=== PATIENT | male | born 1950 | race Caucasian/White ===

== ENCOUNTER 2017-07-14 15:25 | Emergency (ER) | payer OTHER ==
[2017-07-14] MEDS ORDERED: NS 1,000 ML IV ONE (15:42)
--- NOTE | 2017-07-14 15:48 | EDPHY ---
H & P Stated Complaint: intercourse last night. acute posterior headache. right side face tingling Time Seen by Provider: 07/14/17 15:31 HPI/ROS: CHIEF COMPLAINT: Right facial tingling HISTORY OF PRESENT ILLNESS: Patient is a 66-year-old healthy man who comes to the emergency department complaining of tingling in his right lower lip and cheek. No weakness or deficits or slurred speech. The patient had sudden onset of severe posterior right-sided headache last night during intercourse. When he woke up this morning his headache was better but he was doing some yard work this afternoon around 2:00 p.m. When he suddenly noticed some tingling in his right lower lip and cheek. No slurred speech. No headache. He thought that he was dehydrated and overheated. He got a glass of water to but His symptoms did not resolve. They are now improved but he still feels a slight numb sensation. No weakness in his arms or legs. Here during my exam he states that he did feel some tingling in his right toes briefly while lying in the ER bed. He currently does not have a headache. No recent fevers. No trauma. REVIEW OF SYSTEMS: Constitutional: denies: chills, fever, recent illness, recent injury EENTM: denies: blurred vision, double vision, nose congestion Respiratory: denies: cough, shortness of breath Cardiac: denies: chest pain, irregular heart rate, lightheadedness, palpitations Gastrointestinal/Abdominal: denies: abdominal pain, diarrhea, nausea, vomiting, blood streaked stools Genitourinary: denies: dysuria, frequency, hematuria, pain Musculoskeletal: denies: joint pain, muscle pain Skin: denies: lesions, rash, jaundice, bruising Neurological: See HPI denies: dizziness, weakness Hematologic/Lymphatic: denies: blood clots, easy bleeding, easy bruising Immunologic/allergic: denies: HIV/AIDS, transplant EXAM: GENERAL: Well-appearing, well-nourished and in no acute distress. HEAD: Atraumatic, normocephalic. EYES: Pupils equal round and reactive to light, extraocular movements intact, sclera anicteric, conjunctiva are normal. ENT: TMs normal, nares patent, oropharynx clear without exudates. Moist mucous membranes. NECK: Normal range of motion, supple without lymphadenopathy or JVD. LUNGS: Breath sounds clear to auscultation bilaterally and equal. No wheezes rales or rhonchi. HEART: Regular rate and rhythm without murmurs, rubs or gallops. ABDOMEN: Soft, nontender, normoactive bowel sounds. No guarding, no rebound. No masses appreciated. BACK: No CVA tenderness, no spinal tenderness, step-offs or deformities EXTREMITIES: Normal range of motion, no pitting or edema. No clubbing or cyanosis. NEUROLOGICAL: NIH stroke score 0, Cranial nerves II through XII grossly intact. Normal speech, normal gait. 5/5 strength, normal movement in all extremities, normal sensation to objective testing PSYCH: Normal mood, normal affect. SKIN: Warm, dry, normal turgor, no visible rashes or lesions. Source: Patient Exam Limitations: No limitations - Personal History Current Tetanus/Diphtheria Vaccine: Unsure Current Tetanus Diphtheria and Acellular Pertussis (TDAP): Unsure - Medical/Surgical History Hx Asthma: No Hx Chronic Respiratory Disease: No Hx Diabetes: No Hx Cardiac Disease: No Hx Renal Disease: No Hx Cirrhosis: No Hx Alcoholism: No Hx HIV/AIDS: No Hx Splenectomy or Spleen Trauma: No Other PMH: pancreatitis 2001, diverticulitis, - Social History Smoking Status: Never smoked Alcohol Use: None Constitutional: Initial Vital Signs Temperature (C) 36.8 C 07/14/17 15:33 Heart Rate 85 07/14/17 15:33 Respiratory Rate 16 07/14/17 15:33 Blood Pressure 130/79 H 07/14/17 15:33 O2 Sat (%) 94 07/14/17 15:33 O2 Delivery Mode Room Air Allergies/Adverse Reactions: acetaminophen [From Percocet] Allergy (Verified 07/14/17 15:32) oxycodone HCl [From Percocet] Allergy (Verified 07/14/17 15:32) Home Medications: Medication Instructions Recorded Metronidazole 1 mg PO Q6 #40 tablet 03/01/14 levOFLOXACIN [levAQUIN (RX)] 750 mg PO DAILY #10 tab 03/01/14 Medical Decision Making - Diagnostics EKG Interpretation: An EKG obtained and was read and documented in trace view. Please see trace view for full reading and report. Sinus rhythm, no acute ischemic changes Imaging: Discussed imaging studies w/ yard caller Radiologist ED Course/Re-evaluation: 5:20 p.m. we discussed the CT and lab results which are reassuring. The patient 's symptoms have resolved. We discussed the differential diagnosis. We discussed plan. Patient and for eager to go home. We discussed indications for returning. Differential Diagnosis: Partial list of the Differential diagnosis considered include but were not limited to; CVA, dissection, atypical migraine, muscle spasm, tension headache and although unlikely based on the history and physical exam, I also considered shingles, dental infection, glaucoma. I discussed these differential diagnoses and the plan with the patient as well as the usual and expected course. The patient understands that the diagnosis is provisional and that in medicine we are not always correct and that further workup is often warranted. Usual and customary warnings were given. All of the patient's questions were answered. The patient was instructed to return to the emergency department should the symptoms at all worsen or return, otherwise to followup with the physician as we discussed. - Data Points Laboratory Results: Laboratory Results 07/14/17 15:35 07/14/17 15:35 Medications Given: Discontinued Medications Sodium Chloride (Ns) 1,000 mls @ 500 mls/hr IV EDNOW ONE PRN Reason: Protocol Stop: 07/14/17 17:41 Last Admin: 07/14/17 15:51 Dose: 1,000 mls Departure - Departure Disposition: Home, Routine, Self-Care Clinical Impression: Facial paresthesia Headache Qualifiers: Headache type: unspecified Headache chronicity pattern: acute headache Intractability: not intractable Qualified Code(s): R51 - Headache Condition: Good Instructions: Acute Headache (ED), Paresthesia (ED) Referrals: NONE *PRIMARY CARE P,. [Primary Care Provider] - As per Instructions
[2017-07-14 15:50] LABS: PLATELET COUNT 203 10^3/uL (150-400)
--- NOTE | 2017-07-14 15:51 | CPEKG ---
Heart Rate: 74 RR Interval: 811 P-R Interval: 148 QRSD Interval: 94 QT Interval: 376 QTC Interval: 418 P [place]: 26 QRS [place]: 21 T Wave [place]: 14 EKG Severity - NORMAL ECG - EKG Impression: SINUS RHYTHM Electronically Signed By: Osman Peoples 14-Jul-2017 16:22:31
[2017-07-14] MEDS ORDERED: IOPAMIDOL (ISOVUE 370) 100 ML BTL IV ONE (15:57)
[2017-07-14 15:59] LABS: INR 1.01 (0.83-1.16); PROTIME(PATIENT) 13.5 SEC (12.0-15.0)
[2017-07-14 17:32] VITALS: BP 111/79
== END 2017-07-14 17:34 | disposition home or self-care (01) ==
DX: R20.2 Paresthesia of skin (principal); R51 Headache; E86.9 Volume depletion, unspecified
CPT/HCPCS: Q9967